=== PATIENT | male | born 1970 | race Caucasian/White ===

== ENCOUNTER 2016-05-15 07:44 | Observation (INO) | payer SELFPAY ==
[2016-05-15] MEDS ORDERED: VANCOMYCIN HCL INJ 1,000 MG, VANCOMYCIN HCL INJ 500 MG in SODIUM CHLORIDE 0.9% 250ML 25... IVPB ONE (08:06)
[2016-05-15] MEDS ORDERED: CEFEPIME 2 GM in SODIUM CHL 0.9% 50ML MIN-BAG+ 50 ML IVPB ONE (08:06)
[2016-05-15] MEDS ORDERED: HYDROcodone 5MG/APAP 325MG 1 EA TAB PO ONE (08:26)
[2016-05-15] MEDS ORDERED: IBUPROFEN 200 MG TAB PO ONE (08:26)
--- NOTE | 2016-05-15 08:40 | ED.PDOC ---
History of Present Illness - General Chief Complaint: Skin/Abrasion/Tear Time Seen by Provider: 05/15/16 08:05 Source: patient Exam Limitations: no limitations - History of Present Illness Initial Comments: patient is a 46-year-old male presenting to the emergency room secondary to pain and swelling in the distal aspect of his left foot. The patient apparently struck a stem of a broom lead through the bottom of his shoe yesterday morning and into the plantar aspect of his left foot. He quickly pulled out and is actually not look at it until the end of the day. He has not a diabetic and is not reporting any significant long-term medical problems. The pain has continued and worsened over the course of the ensuing 24 hours. The puncture wound is approximately three quarters of a centimeters in length and not draining anything currently. There is significant swelling to the distal aspect of the foot and there is pain on the dorsal aspect of the foot primarily between the first and second digits. There is pain with flexion and extension of the first and second digits. He does appear to be neurovascularly preserved and all tendon function appears to be normal. No evidence of deformity otherwise. The stem of a broom we should not be strong enough to puncture the cortex of the bone. There is no exit wound on the dorsum of the foot. There is no bruising to the dorsum of the foot. No other injuries. no fevers, body aches or chills. No palpitations. No nausea or vomiting. No evidence of systemic infection. Timing/Duration: 24 hours Severity: moderate Improving Factors: immobilization Worsening Factors: movement Associated Symptoms: denies symptoms Allergies/Adverse Reactions: Allergies NO KNOWN ALLERGY Allergy (Unverified 12/21/13 15:05) Home Medications: Ambulatory Orders Naproxen [Naprosyn] 500 mg PO BID PRN #10 tab 12/21/13 Review of Systems - Review of Systems Constitutional: States: no symptoms reported EENTM: States: no symptoms reported Respiratory: States: no symptoms reported Cardiology: States: no symptoms reported Gastrointestinal/Abdominal: States: no symptoms reported Genitourinary: States: no symptoms reported Musculoskeletal: States: see HPI Skin: States: see HPI Neurological: States: no symptoms reported Endocrine: States: no symptoms reported All other Systems: No Change from Baseline Past Medical History (General) - Vaccination History Hx Tetanus, Diphtheria Vaccination: Yes Hx Influenza Vaccination: No Hx Pneumococcal Vaccination: No - Social History Hx Chewing Tobacco Use: Yes - dips Family Medical History - Family History Mother Family History: Unknown Physical Exam - Physical Exam General Appearance: Alert, Comfortable, No apparent distress Eye Exam: bilateral normal Ears, Nose, Throat: normal ENT inspection, normal pharynx Neck: full range of motion, supple, normal inspection Respiratory: chest non-tender, lungs clear, normal breath sounds, no respiratory distress, no accessory muscle use Cardiovascular/Chest: normal peripheral pulses, regular rate, rhythm, no edema Peripheral Pulses: radial,right: 2+, radial,left: 2+, dorsalis pedis,right: 2+, dorsalis pedis,left: 2+, posterior tibialis,right: 2+, posterior tibialis,left: 2+ Gastrointestinal/Abdominal: normal bowel sounds, non tender, soft Rectal Exam: deferred Back Exam: normal inspection Extremity: normal range of motion, no calf tenderness, normal capillary refill, other - see history of present illness. Neurologic: parts person II-XII nml as tested, no motor/sensory deficits, alert, normal mood/affect, oriented x 3 Skin Exam: normal color - with the exception of erythema seen in the distal foot. There is swelling of the foot. Comments: Vital Signs - 24 hr 05/15/16 08:03 Temperature 98.3 F Pulse Rate [L 91 H Arm] Respiratory 20 Rate Blood Pressure 145/80 [L Arm] O2 Sat by Pulse 94 L Oximetry Progress - Progress Progress: 05/15/16 08:44 The patient is a 46-year-old male presenting to the emergency room after a puncture wound to his left foot yesterday. He has had progressive pain primarily in the distal foot between the first and second digits. He is neurovascularly preserved. aside from swelling, there is no deformity. Tendon function is preserved. Joint function is preserved. There is significant swelling. There is mild erythema. Risk and benefits of exploration are explained and patient agrees to proceed. 1% Xylocaine with epinephrine 2 cc were used for local anesthetic. A 15 blade scalpel was used to expand the puncture site to approximately 1 cm in length as well as widening it to allow for drainage. Hemostats and sterile cotton tip swab were used to explore the puncture wound tract. I found no residual foreign body to be removed. The puncture tract does extend beyond the plantar aponeurosis. the wound tract through the aponeurosis was widened with hemostats. No dennis pus was obtained only serous drainage which was cultured. Again I see no evidence of definitive abscess formation or residual foreign body in this patient at this time. X- rays being performed to make sure there is no visual evidence of any residual foreign body. The patient is neurovascularly preserved. The patient will be placed on vancomycin and cefepime and we monitored as an inpatient for at least 24 hours to make sure that he is improving. More advanced imaging at this time is likely not warranted given the short duration since the initial wound. If he worsens in spite of antibiotics and obviously an MRI and possible orthopedics consult would be warranted. Admit for IV antibiotics and further monitoring. Blood and wound cultures have been done. The patient was given a dose of Motrin and hydrocodone here. - Results/Orders Results/Orders: laboratory results are pending at this time. Wound culture has been performed however there was no dennis pus to culture only serous drainage. Blood cultures been performed as well. Departure - Departure Clinical Impression: Puncture wound of foot excluding toes with infection Qualifiers: Encounter type: initial encounter Laterality: left Qualifier Code: (S91.332A) Puncture wound without foreign body, left foot, initial encounter Disposition: Admit Patient Condition: Fair Home Medications: Ambulatory Orders Naproxen [Naprosyn] 500 mg PO BID PRN #10 tab 12/21/13 Decision To Admit - Decistion To Admit Decision to Admit Reason: Medical Nature Decision to Admit Date: 05/15/16 Decision to Admit Time: 08:51
[2016-05-15] MEDS ORDERED: SODIUM CHL 0.9% 50ML MIN-BAG+ 50 ML IVPB ONE ×2 (08:50→20:00)
[2016-05-15] MEDS ORDERED: CEFEPIME 2 GM VIAL IVPB ONE ×2 (08:50→20:01)
--- NOTE | 2016-05-15 09:11 | HP ---
SUPERVISING PHYSICIAN: VIVIAN BRODERICK MD CHIEF COMPLAINT: Puncture wound to left foot. 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 He had tennis shoes on and he stepped on the broomweed, it punctured his shoe and went into the plantar aspect of his left foot. He quickly pulled it out and did not look at it until the end of the day. This morning, he had quite a bit of pain in that area and decided to come to the Emergency Room. He has no history of diabetes and he does not see a physician, although he has gone to [facility] once or twice in the past. There was quite bit of pain to the top of the foot and the Emergency Room physician, Dr. John Sharma, explored the puncture wound and there was no evidence of a definitive abscess or any residual foreign body in this area. He did an x-ray and gave him vancomycin and Cefepime. I was called for admission to the hospital for antibiotic treatment and to watch the wound. PAST MEDICAL HISTORY: None. PAST SURGICAL HISTORY: 1. Surgery on his right hand as a child after fracturing it. CURRENT MEDICATIONS: No outpatient medications. ALLERGIES: NO KNOWN DRUG ALLER. FAMILY HISTORY: Noncontributory. SOCIAL HISTORY: He uses chewing tobacco, denies cigarette use, ETOH or illicit drug use. REVIEW OF SYSTEMS: GENERAL: Denies fever, fatigue or chills. HEENT: Denies sinus symptoms, ear pain, vision changes or sore throat. RESPIRATORY: Denies coughing, wheezing, shortness of breath. CARDIAC: Denies chest pain, palpitations or tachycardia. ABDOMEN: Denies abdominal pain, nausea, vomiting, diarrhea or constipation. SKIN: As per history of present illness. MUSCULOSKELETAL: As per history of present illness. NEUROLOGICAL: Denies any dizziness, headache or seizures. PHYSICAL EXAMINATION: VITAL SIGNS: He is afebrile. Pulse rate is 72. Blood pressure 159/78, respiratory rate 18, 02 saturation is 95% on room air. GENERAL: This is a 46 year-old obese male who is lying in his hospital bed. He is in no acute distress. HEENT: Normocephalic and atraumatic. Pupils are equal and reactive. NECK: Supple without mass. CHEST: Clear to auscultation bilaterally. CARDIOVASCULAR: Regular rate and rhythm. ABDOMEN: Rounded, soft, non-tender. Bowel sounds are positive. EXTREMITIES: There is warmth and erythema to the dorsal aspect of the left foot. It is slightly tender to palpation. The plantar aspect of his foot has a dressing on it that is dry and intact. LABORATORY: CBC is within normal limits. Chemistry is basically within normal limits with the exception of his random glucose is 155. IMAGING: Left foot x-ray shows calcaneal spurring, otherwise an unremarkable examination. No opaque foreign bodies. Soft tissue gas of fracture. His wound and blood cultures are pending. All other labs and films have been reviewed via the EMR. ASSESSMENT: 1. Puncture wound to the left foot. 2. Elevated blood pressure without diagnosis of hypertension. 3. Elevated random glucose without any diagnosis of diabetes. PLAN: We will admit patient for observation. We will continue his vancomycin and Cefepime. I will repeat his lab in the morning. I will also add a hemoglobin A1C to the morning lab due to his elevated blood sugar. I will also start him on some lisinopril as he has several blood pressures today that are elevated. Will monitor his wound and watch for possible infection. Most likely he will be able to go home tomorrow on oral antibiotics and will need to followup with [facility]. I will also order him a tetanus as he is not current with that. Dr. Broderick will continue to monitor him closely and followup as needed. Dr. Broderick is the collaborating physician and available for consultation. #[id number] [facility]ITAL[facility]
--- NOTE | 2016-05-15 09:21 | RAD ---
EXAM DESCRIPTION: Foot,Left 3 Views CLINICAL HISTORY: 46 years Male, puncture wound distal left foot bw mc 1 2 COMPARISON: None. FINDINGS: 3 views of the left foot show no acute fracture or malalignment. There is no radiopaque foreign body or soft tissue gas. Calcaneal spur is noted at the insertion sites of the plantar fascia and Achilles tendon. IMPRESSION: Calcaneal spurring, otherwise unremarkable exam. No opaque foreign body, soft tissue gas or fracture. Electronically signed by: Augustus Terry MD 05/15/2016 9:20 AM RIVETING MACHINE OPERATOR
[2016-05-15] MEDS ORDERED: VANCOMYCIN HCL INJ 1,000 MG VIAL IVPB ONE ×2 (09:35→20:15)
[2016-05-15] MEDS ORDERED: VANCOMYCIN HCL INJ 500 MG VIAL ONE ×3 (09:36→20:15)
[2016-05-15] MEDS ORDERED: SODIUM CHLORIDE 0.9% 10 ML VIAL ONE (09:47)
[2016-05-15] MEDS ORDERED: ACETAMINOPHEN 325 MG TAB PO PRN (12:44)
[2016-05-15] MEDS ORDERED: SODIUM CHLORIDE 0.9% (FLUSH) 10 ML SYG IV PRN (14:49)
[2016-05-15] MEDS ORDERED: IV SET AND CAP CHANGE INJ INJ SCH (15:00)
[2016-05-15] MEDS ORDERED: HYDROcodone 5MG/APAP 325MG 1 EA TAB PO PRN (15:26)
[2016-05-15] MEDS ORDERED: VANCOMYCIN PER PHARMACY INJ SCH (15:30)
[2016-05-15] MEDS ORDERED: SODIUM CHLORIDE 0.9% 10 ML VIAL IV PRN (15:56)
[2016-05-15] MEDS: LISINOPRIL 10 MG TAB PO SCH (16:21)
[2016-05-15] MEDS: CEFEPIME 2 GM in SODIUM CHL 0.9% 50ML MIN-BAG+ 50 ML IVPB SCH (20:06)
[2016-05-15] MEDS ORDERED: SODIUM CHLORIDE 0.9% 250ML 250 ML ONE (20:15)
[2016-05-15] MEDS ORDERED: VANCOMYCIN HCL INJ 1,000 MG, VANCOMYCIN HCL INJ 500 MG in SODIUM CHLORIDE 0.9% 250ML 25... IVPB SCH (22:00)
[2016-05-15] MEDS ORDERED: TETANUS,DIPHTHERIA,PERTUSSIS 1 EA SYG IM ONE ×2 (22:28→23:00)
[2016-05-16] MEDS ORDERED: VANCOMYCIN HCL INJ 500 MG VIAL ONE (05:34)
[2016-05-16] MEDS ORDERED: VANCOMYCIN HCL INJ 1,000 MG VIAL IVPB ONE (05:35)
[2016-05-16] MEDS ORDERED: SODIUM CHLORIDE 0.9% 250ML 0 ML ONE (05:35)
[2016-05-16] MEDS ORDERED: SODIUM CHL 0.9% 50ML MIN-BAG+ 50 ML IVPB ONE (05:35)
[2016-05-16] MEDS ORDERED: CEFEPIME 2 GM VIAL IVPB ONE (05:36)
[2016-05-16] MEDS: CEFEPIME 2 GM in SODIUM CHL 0.9% 50ML MIN-BAG+ 50 ML IVPB SCH (08:16)
[2016-05-16 08:34] VITALS: BP 131/76; TEMP 97.6; O2SAT 95
[2016-05-16] MEDS: LISINOPRIL 10 MG TAB PO SCH (08:54)
--- NOTE | 2016-05-16 17:55 | DS ---
SUPERVISING PHYSICIAN: Star Broderick M.D. DISCHARGE DIAGNOSIS: 1. Puncture wound to the left foot. 2. Hypertension. HISTORY OF PRESENT ILLNESS: This is a 46 year-old male patient who was plowing in his prather and he stepped on broomweed and it went through the sole of his tennis shoe into his left foot on the day prior to admission to the hospital. He did not think anything of it at that time but when he got home that evening he noticed that it was quite sore and becoming reddened. On the day of admission, he came to the Emergency Room. The Emergency Room physician incised and drained the wound and no foreign substance was found to be in there nor was there any purulent drainage, but the puncture wound did extend from the plantar surface fo the ball of his foot between the number 2 and 3 digits. It was cleaned and irrigated. The patient was placed on some Cefepime and vancomycin in the Emergency Room and he was admitted to the hospital. HOSPITAL COURSE: Cultures are still pending at this time, but overnight he did very well. The foot has no redness or swelling. There is no drainage noted. He actually can walk on it now and it is very minimally tender. He received a tetanus shot and as an incidental finding his blood pressure was quite elevated , so he was started on some Lisinopril and his systolic blood pressure has come down quite nicely into the 130s. At this point, he has stabilized enough that he can be discharged home. DISCHARGE PLAN: The patient will be discharged home in stable condition. He is to resume his previous activity. He is to monitor the puncture wound on his foot and to return to the Emergency Room or call [facility] for any further problems. He is to have a followup with Aarti Houston at [facility] within the next 1 to 2 weeks to both followup on the puncture wound as well as his hypertension. He received a tetanus shot. I have sent him home on some Doxycycline antibiotics as well as some Lisinopril for his blood pressure. The Cefepime should have covered for any Pseudomonas but the cultures are still pending. When he follows up with Aarti Houston, they can review his culture reports at that time. DISCHARGE MEDICATIONS: 1. Doxycycline. 2. Lisinopril. Dr. Broderick is the collaborating physician and available for consultation. #[id number] [facility]
== END 2016-05-16 09:17 | disposition home or self-care (01) ==
LOC: ER 07:44 → MS 09:10
PROVIDERS: ADMIT Nurse Practitioner Acute Care; ATTEND Nurse Practitioner Acute Care
DX: S91.332A Puncture wound without foreign body, left foot, initial encounter (principal); I10 Essential (primary) hypertension; M77.32 Calcaneal spur, left foot; R73.09 Other abnormal glucose; F17.220 Nicotine dependence, chewing tobacco, uncomplicated; Z23 Encounter for immunization; W22.8XXA Striking against or struck by other objects, initial encounter; Y93.H2 Activity, gardening and landscaping; Y92.73 Farm field as the place of occurrence of the external cause

== ENCOUNTER 2017-04-08 14:10 | Emergency (ER) | payer SELFPAY ==
[2017-04-08 15:32] VITALS: TEMP 97.4
--- NOTE | 2017-04-08 16:31 | ED.PDOC ---
History of Present Illness - General Chief Complaint: Blood Pressure Problem Stated Complaint: elevated blood pressure Time Seen by Provider: 04/08/17 15:43 Source: patient Exam Limitations: no limitations - History of Present Illness Initial Comments: Linus Pollard 46 y/o male came to ER after home health nurse checked his blood pressure and noted to be elevated systolic>160 felt weak and got sweaty denies chest pains dizziness, headache,and blurry vision,slurred speech but on arrival at ER felt better BP-127/93.Had same problems in the past happened 3 x whenever blood pressure goes up.Had been prescribed high blood pressure medications in the past but quit taking it;No regular Md follow up. Timing/Duration: 4-6 hours Severity: moderate Improving Factors: nothing Worsening Factors: nothing Associated Symptoms: denies symptoms Allergies/Adverse Reactions: Allergies NO KNOWN ALLERGY Allergy (Unverified 12/21/13 15:05) Home Medications: Ambulatory Orders amLODIPine BESYLATE [Norvasc] 5 mg PO DAILY #14 tab 04/08/17 Review of Systems - Review of Systems Constitutional: States: see HPI, weakness EENTM: States: no symptoms reported Respiratory: States: no symptoms reported Cardiology: States: no symptoms reported Gastrointestinal/Abdominal: States: no symptoms reported Genitourinary: States: no symptoms reported Musculoskeletal: States: no symptoms reported Skin: States: no symptoms reported Neurological: States: no symptoms reported Endocrine: States: no symptoms reported Past Medical History (General) - Patient Medical History Hx Seizures: No Hx Stroke: No Hx Asthma: No Hx of COPD: No Hx Congestive Heart Failure: No Hx Pacemaker: No Hx Hypertension: Yes Hx Diabetes: No Hx MRSA: No Surgical History: other - right hand - Vaccination History Hx Tetanus, Diphtheria Vaccination: Yes Hx Influenza Vaccination: No Hx Pneumococcal Vaccination: No - Social History Hx Tobacco Use: No Hx Chewing Tobacco Use: Yes Hx Alcohol Use: No Hx Substance Use: No Hx Substance Use Treatment: No Hx Depression: No Hx Physical Abuse: No Hx Emotional Abuse: No Family Medical History - Family History Mother Family History: Unknown Physical Exam - Physical Exam General Appearance: Alert, Comfortable, No apparent distress Eye Exam: bilateral normal Ears, Nose, Throat: hearing grossly normal, normal ENT inspection Neck: non-tender, full range of motion, supple Respiratory: chest non-tender, lungs clear, normal breath sounds Cardiovascular/Chest: normal peripheral pulses, regular rate, rhythm, no murmur Peripheral Pulses: radial,right: 2+, radial,left: 2+ Gastrointestinal/Abdominal: normal bowel sounds, non tender, soft, no organomegaly Back Exam: normal inspection, no CVA tenderness, no vertebral tenderness Neurologic: alert, normal mood/affect, oriented x 3 Skin Exam: normal color, warm/dry Progress - Progress Progress: 04/08/17 16:35 Last Vital Signs Temp 97.4 F L 04/08/17 15:26 Pulse 70 04/08/17 15:26 Resp 20 04/08/17 15:26 BP 127/93 04/08/17 15:26 Pulse Ox 96 04/08/17 15:26 - Results/Orders Results/Orders: Laboratory Tests 04/08/17 15:58 WBC 8.8 RBC 5.14 Hgb 15.9 Hct 45.9 MCV 89.4 MCH 30.9 MCHC 34.6 RDW 12.5 Plt Count 207 MPV 8.4 Absolute Neuts (auto) 4.80 Absolute Lymphs (auto) 2.90 Absolute Monos (auto) 0.80 Absolute Eos (auto) 0.30 Absolute Basos (auto) 0.00 Neutrophils % 54.3 Lymphocytes % 33.3 Monocytes % 8.7 Eosinophils % 3.2 Basophils % 0.5 PT 11.7 INR 1.040 PTT (SP) 29.8 Sodium 137 Potassium 4.1 Chloride 99 L Carbon Dioxide 28 Anion Gap 14.1 BUN 13 Creatinine 0.85 BUN/Creatinine Ratio 15.3 Random Glucose 93 Serum Osmolality 273.6 L Calcium 9.2 Magnesium 2.3 Total Bilirubin 0.6 Direct Bilirubin 0.1 Indirect Bilirubin 0.5 AST 23 ALT 25 Alkaline Phosphatase 47 Creatine Kinase 192 H CK-MB (CK-2) 1.8 CK-MB (CK-2) % Not Reportable Troponin I < 0.02 Serum Total Protein 7.6 Albumin 4.4 - EKG/XRAY/CT EKG: Sinus, no ST T wave changes Comments: heart rate-70 Departure - Departure Clinical Impression: Hypertension Qualifiers: Hypertension type: unspecified Qualified Code(s): I10 - Essential (primary) hypertension Time of Disposition: 16:37 Disposition: Discharge to Home or Self Care Departure Forms: ED Discharge - Pt. Copy, Patient Portal Self Enrollment Prescriptions: amLODIPine BESYLATE [Norvasc] 5 mg PO DAILY #14 tab Home Medications: Ambulatory Orders amLODIPine BESYLATE [Norvasc] 5 mg PO DAILY #14 tab 04/08/17 Additional Instructions: KEEP appointment with Md next week
[2017-04-08] MEDS ORDERED: amLODIPine BESYLATE 5 MG TAB PO ONE (16:35)
[2017-04-08 16:57] VITALS: BP 133/96; O2SAT 97
== END 2017-04-08 16:57 | disposition home or self-care (01) ==
LOC: ER 14:10
DX: I10 Essential (primary) hypertension (principal)

== ENCOUNTER 2018-10-17 22:17 | Emergency (ER) | payer SELFPAY ==
--- NOTE | 2018-10-17 23:27 | ED.PDOC ---
History of Present Illness - General Chief Complaint: Lower Extremity Injury Stated Complaint: right foot pain Time Seen by Provider: 10/17/18 23:24 Source: patient Exam Limitations: no limitations - History of Present Illness Initial Comments: Patient presents with a painful right foot for 3 days. He dropped a 3 x 3 foot metal box on it. Pain is medial and distal, constant, throbbing, non-radiating, worse with movement, better with rest, no previous injuries. He is ambulatory. He has not tried any treatment. No other injuries nor complaints. Timing/Duration: other - 3 days Severity: moderate Improving Factors: rest Worsening Factors: movement Associated Symptoms: denies symptoms Allergies/Adverse Reactions: Allergies NO KNOWN ALLERGY Allergy (Unverified 12/21/13 15:05) Home Medications: Ambulatory Orders amLODIPine BESYLATE [Norvasc] 5 mg PO DAILY #14 tab 04/08/17 Review of Systems - Review of Systems Constitutional: States: no symptoms reported EENTM: States: no symptoms reported Respiratory: States: no symptoms reported Cardiology: States: no symptoms reported Gastrointestinal/Abdominal: States: no symptoms reported Genitourinary: States: no symptoms reported Musculoskeletal: States: see HPI Skin: States: no symptoms reported Neurological: States: no symptoms reported Endocrine: States: no symptoms reported Hematologic/Lymphatic: States: no symptoms reported Past Medical History (General) - Patient Medical History Hx Seizures: No Hx Stroke: No Hx Asthma: No Hx of COPD: No Hx Congestive Heart Failure: No Hx Pacemaker: No Hx Hypertension: Yes Hx Diabetes: No Hx MRSA: No Surgical History: no surgical history - Vaccination History Hx Tetanus, Diphtheria Vaccination: Yes Hx Influenza Vaccination: No Hx Pneumococcal Vaccination: No Immunizations Up to Date: Yes - Social History Hx Tobacco Use: No Hx Chewing Tobacco Use: Yes Hx Alcohol Use: No Hx Substance Use: No Hx Substance Use Treatment: No Hx Depression: No Hx Physical Abuse: No Hx Emotional Abuse: No Family Medical History - Family History Mother Family History: Unknown Physical Exam - Physical Exam General Appearance: Alert Respiratory: lungs clear, normal breath sounds Cardiovascular/Chest: normal peripheral pulses, regular rate, rhythm Gastrointestinal/Abdominal: normal bowel sounds, non tender, soft Extremity: swelling - Contusion on the distal, medial, dorsal aspect of the foot. It is TTP. Patient has 5/5 strength to flexion/extension of the toes although it is painful. 5/5 strength to dorsiflexion/plantarflexion of the right foot without pain. Neurologic: no motor/sensory deficits, alert, normal mood/affect, oriented x 3 Progress - Progress Progress: 10/17/18 23:40 Patient refused pain meds. Radiographs of the right foot showed no dislocation nor fracture. COLE bandage applied. Ice pack supplied. Patient declinde crutches. Care instructions given. E.R. warnings given. Questions were elicited and answered. Patient voiced understanding and agreement with the plan. 10/17/18 23:45 10/17/18 23:50 Departure - Departure Clinical Impression: Contusion of foot Disposition: Discharge to Home or Self Care Condition: Good Departure Forms: ED Discharge - Pt. Copy, Patient Portal Self Enrollment Instructions: Contusion (DC), Taking Care of Bruises Diet: resume usual diet Activity: increase activity as tolerated Home Medications: Ambulatory Orders amLODIPine BESYLATE [Norvasc] 5 mg PO DAILY #14 tab 04/08/17 Additional Instructions: Do not drive if the foot pain prevents you from safely doing your job. We can give you a note for days off from work. Use the COLE wrap during the day. At night, elevate the foot above the heart. Use ice to the painful area three times per day for 15 minutes. After 48 more hours, start using heat twice per day to speed up healing. Ibuprofen as directed on the bottle for pain relief. Return to the E.R. for loss of sensation in the foot or increasing pain. Return to the E.R. if the foot becomes red or for a temperature greater than 100.3. See your regular doctor or Dr. Gong if pain is not gone completely in two weeks.
--- NOTE | 2018-10-17 23:29 | RAD ---
CLINICAL HISTORY: dropped heavy object onto foot COMPARISON: None. TECHNIQUE: XR FOOT 3 OR MORE VIEWS 10/17/2018 10:30 PM CDT FINDINGS: There is no fracture. Joint spaces are preserved. There is mild diffuse anterior soft tissue swelling. There is a calcaneal spur. IMPRESSION: No acute osseous findings. Electronically signed by: Boubacar Cheng MD 10/17/2018 11:27 PM CDT
[2018-10-18 00:02] VITALS: BP 140/97; TEMP 97.6; O2SAT 95
== END 2018-10-17 23:54 | disposition home or self-care (01) ==
LOC: ER 22:17
DX: S90.31XA Contusion of right foot, initial encounter (principal); W20.8XXA Other cause of strike by thrown, projected or falling object, initial encounter; I10 Essential (primary) hypertension; Z87.891 Personal history of nicotine dependence; Y92.9 Unspecified place or not applicable

== ENCOUNTER → 2019-01-20 | Outpatient (CLI) | payer OTHER | LOC: YCFC.O 09:59 | PROVIDERS: ATTEND Nurse Practitioner | DX: K92.0 Hematemesis (principal) ==